=== PATIENT | female | born 1985 | race Caucasian/White ===

== ENCOUNTER 2016-07-22 08:12 | Inpatient (IN) | payer BC ==
[2016-07-22] MEDS ORDERED: Ondansetron INJ* 2 MG/ML VIAL IV ONE (08:50)
[2016-07-22] MEDS ORDERED: Oxytocin in LR* 20 UNITS/1,000 ML BAG IVPB SCH ×2 (09:00→18:00)
[2016-07-22 09:17] LABS: Hematocrit 28 % (35-47); Hemoglobin 8.9 g/dl (12.0-16.0); Mean Corpuscular HGB Conc 32 g/dl (31-36); Mean Corpuscular Hemoglobin 24 pg (27-31); Mean Corpuscular Volume 76 fL (80-97); Mean Platelet Volume 10 um3 (7.4-10.4); Red Blood Count 3.64 10^6/ul (4.0-5.4); Red Cell Distribution Width 17 % (10.5-15); White Blood Count 8.5 10^3/ul (3.5-10.8)
[2016-07-22 10:24] LABS: Albumin 3.2 g/dL (3.2-5.2); BUN/Creatinine Ratio 16.7 (8-20); Calcium 8.4 mg/dL (8.6-10.3); EGFR African American 135.2 (>60); EGFR Non-African American 105.2 (>60); Potassium 4.2 mmol/L (3.5-5.0); Total Bilirubin 0.3 mg/dL (0.2-1.0); Total Protein 6.2 g/dL (6.4-8.9); Uric Acid 4.2 mg/dL (2.3-6.6)
[2016-07-22] MEDS ORDERED: Calcium Carbonate CHEW TAB* 500 MG (TUMS) PO ONE (11:57)
[2016-07-22] MEDS ORDERED: OBEPIDURAL* 250 ML ONE (13:07)
[2016-07-22] MEDS ORDERED: Phenylephrine IV* 40 MCG/ML 10 ML SYRINGE IV PUSH PRN ×2 (13:57)
[2016-07-22] MEDS ORDERED: Famotidine TAB* 20 MG PO PRN (13:57)
[2016-07-22] MEDS ORDERED: Sodium Citrate/Citric Acid* 15 ML UDC PO PRN (13:57)
[2016-07-22] MEDS ORDERED: OBEPIDURAL* 250 ML EPIDURAL SCH (14:00)
[2016-07-22] MEDS ORDERED: Acetaminophen TAB* 325 MG PO PRN (17:48)
[2016-07-22] MEDS ORDERED: Witch Hazel PAD* JAR TOPICAL PRN (17:48)
[2016-07-22] MEDS ORDERED: Zolpidem TAB* 5 MG PO PRN (17:48)
[2016-07-22] MEDS ORDERED: Misoprostol TAB* 200 MCG PR ONE (17:48)
[2016-07-22] MEDS ORDERED: Dibucaine 1% 28.35 GM TUBE PR PRN (17:48)
[2016-07-22] MEDS ORDERED: Glycerin ADULT SUPP PR PRN (17:48)
[2016-07-22] MEDS ORDERED: oxyCODONE/Acetamin 5/325 MG* TAB PO PRN (17:48)
[2016-07-22] MEDS ORDERED: Ondansetron ODT TAB* 4 MG PO PRN (17:53)
[2016-07-22] MEDS: Docusate CAP* 100 MG PO SCH (21:28)
[2016-07-22] MEDS: Ibuprofen TAB* 600 MG PO PRN (21:28)
[2016-07-23] MEDS: Ibuprofen TAB* 600 MG PO PRN ×4 (03:35→21:41)
[2016-07-23 07:12] LABS: Hematocrit 21 % (35-47); Hemoglobin 6.8 g/dl (12.0-16.0); Mean Corpuscular HGB Conc 32 g/dl (31-36); Mean Corpuscular Hemoglobin 24 pg (27-31); Mean Corpuscular Volume 77 fL (80-97); Mean Platelet Volume 9 um3 (7.4-10.4); Red Cell Distribution Width 17 % (10.5-15)
[2016-07-23 07:28] LABS: Add Diff/Slide Review? Slide Review Added; Comments Flag Yes
[2016-07-23] MEDS: Ferrous Gluconate TAB* 324 MG TAB PO SCH ×2 (08:11→21:41)
[2016-07-23] MEDS: Docusate CAP* 100 MG PO SCH ×3 (08:11→21:05)
[2016-07-23 08:12] LABS: Hypochromasia 1+; Macrocytosis 1+; Microcytosis 2+
[2016-07-23 08:13] LABS: Polychromasia 1+
[2016-07-23 08:14] LABS: Tear Drop Cells 1+
[2016-07-23] MEDS ORDERED: NS 0.9% 1000 ML* 1,000 ML IV SCH (14:15)
--- NOTE | 2016-07-23 20:46 | PTEDU ---
Patient Name: AGNES STAFFORD AGNES STAFFORD selected video: Never Ever Shake a Baby to view on 07/23/2016 at 8:45:09 PM from [facility] [place] [id number]
[2016-07-23 21:26] LABS: Hematocrit 24 % (35-47); Hemoglobin 7.8 g/dl (12.0-16.0)
[2016-07-24] MEDS: Ibuprofen TAB* 600 MG PO PRN (08:11)
[2016-07-24] MEDS: Docusate CAP* 100 MG PO SCH (08:11)
[2016-07-24] MEDS: Ferrous Gluconate TAB* 324 MG TAB PO SCH (08:11)
[2016-07-24 08:36] VITALS: BP 140/79
== END 2016-07-24 14:05 | disposition home or self-care (01) | DRG 560 ==
LOC: MCHOBOUT 08:12 → MCHOB 08:41
PROVIDERS: ADMIT Midwife; ATTEND Midwife
PROC: 10E0XZZ Delivery of Products of Conception, External Approach (ICD-10-PCS; principal; 2016-07-22)
PROC: 3E0P7GC Introduction of Other Therapeutic Substance into Female Reproductive, Via Natural or Artificial Opening (ICD-10-PCS; 2016-07-22)
PROC: 4A1HXCZ Monitoring of Products of Conception, Cardiac Rate, External Approach (ICD-10-PCS; 2016-07-22)
PROC: 10907ZC Drainage of Amniotic Fluid, Therapeutic from Products of Conception, Via Natural or Artificial Opening (ICD-10-PCS; 2016-07-22)
PROC: 0HQ9XZZ Repair Perineum Skin, External Approach (ICD-10-PCS; 2016-07-22)
PROC: 30233N1 Transfusion of Nonautologous Red Blood Cells into Peripheral Vein, Percutaneous Approach (ICD-10-PCS; 2016-07-23)
DX: O32.2XX0 Maternal care for transverse and oblique lie, not applicable or unspecified (principal); D62 Acute posthemorrhagic anemia; O13.4 Gestational [pregnancy-induced] hypertension without significant proteinuria, complicating childbirth; O34.219 Maternal care for unspecified type scar from previous cesarean delivery; Z3A.38 38 weeks gestation of pregnancy; Z37.0 Single live birth; O70.0 First degree perineal laceration during delivery; O90.81 Anemia of the puerperium
CPT/HCPCS: 36415; 80053; 84550; 85014; 85018; 85025; 86850; 86900; 86901; 86922; A9270-GY; J2405; P9016

== ENCOUNTER 2016-09-30 19:26 | Emergency (ER) | payer BC ==
[2016-09-30 20:17] VITALS: BP 135/81
--- NOTE | 2016-09-30 20:54 | UC ---
Lower Extremity/Ankle HPI - HPI Summary HPI Summary: Pt reports taking a step down off 1 step and inverting left foot and ankle. Pt now c/o left mid foot pain that "wraps around from dorsal mid foot to mid foot of plantar side. Pt is able to bear weight but is hesitant to bear full weight secondary to pain. Pt is 10 weeks . - History of Current Complaint Chief Complaint: UCLowerExtremity Stated Complaint: FOOT AND BOTTOM INJURY Time Seen by Provider: 09/30/16 20:25 Hx Obtained From: Patient Hx Last Menstrual Period: n/a ?: No Onset/Duration: Sudden Onset, Lasting Hours Severity Initially: Mild Severity Currently: Moderate Aggravating Factor(s): Standing, Ambulation Alleviating Factor(s): Rest, Elevation, Ice Able to Bear Weight: Yes - pain with weight bearing - Risk Factors Gout Risk Factors: Negative DVT Risk Factors: Negative, Other: - 10 weeks post Septic Arthritis Risk Factor: Negative - Allergies/Home Medications Allergies/Adverse Reactions: Allergies Allergy/AdvReac Type Severity Reaction Status Date / Time Sulfamethoxazole Allergy Severe Hives Verified 09/30/16 20:09 w/Trimethoprim [From Bactrim] PMH/Surg Hx/FS Hx/Imm Hx Previously Healthy: Yes Endocrine History Of: Denies: Diabetes, Thyroid Disease Cardiovascular History Of: Reports: Hypertension - this , lab work so far negative for preeclampsia Denies: Cardiac Disorders Respiratory History Of: Denies: COPD, Asthma GI/ History Of: Reports: Kidney Stones - LEFT SIDE Denies: Ulcer - Surgical History Surgical History: Yes Surgery Procedure, Year, and Place: 2005 [facility] - Family History Known Family History: Positive: Other - positive [facility] for myalgia - Social History Alcohol Use: None Substance Use Type: None Smoking Status (MU): Never Smoked Tobacco Have You Smoked in the Last Year: No - Immunization History Most Recent Influenza Vaccination: 04/17/16 Most Recent Tetanus Shot: 07/11/16 Most Recent Pneumonia Vaccination: none Review of Systems Constitutional: Negative Skin: Negative Eyes: Negative ENT: Negative Respiratory: Negative Cardiovascular: Negative Gastrointestinal: Negative Genitourinary: Negative Motor: Decreased ROM - left foot/ankle secondary to pain Neurovascular: Negative Musculoskeletal: Decreased ROM - left ankle/foot secondary to pain, Myalgia - left ankle/foot Neurological: Negative Psychological: Negative All Other Systems Reviewed And Are Negative: Yes Physical Exam Triage Information Reviewed: Yes Appearance: Well-Appearing Vital Signs: Initial Vital Signs Temp 99.2 F 09/30/16 20:11 Pulse 97 09/30/16 20:11 Resp 19 09/30/16 20:11 BP 135/81 09/30/16 20:11 Pulse Ox 98 09/30/16 20:11 Vital Signs Reviewed: Yes Respiratory Exam: Other Respiratory: Positive: No respiratory distress Musculoskeletal Exam: Other Musculoskeletal: Positive: Strength Limited @ - left foot/ankle pain secondary to pain, ROM Limited @ - left foot/ankle secondary to pain Neurological Exam: Normal Psychological Exam: Normal Skin Exam: Normal Lower Extremity Course/Dx - Differential Dx/Diagnosis Differential Diagnosis/HQI/PQRI: Sprain - left foot sprain, Strain Provider Diagnoses: left foot sprain. left foot strain Discharge - Discharge Plan Condition: Stable Disposition: HOME Patient Education Materials: Foot Sprain (ED) Referrals: Jarocho Mai MD [Primary Care Provider] - Additional Instructions: Please follow up with your PCP or with the orthopedic provider given as a referral above if symptoms do not improve or worsen.
--- NOTE | 2016-09-30 21:16 | RAD ---
Indication: Fall. Left foot pain. 3 views of left foot demonstrates no fracture. No other bone or joint abnormality is noted. IMPRESSION: No fracture of the left foot is present.
== END 2016-09-30 21:21 | disposition home or self-care (01) ==
LOC: UCEAST 19:26
DX: S93.602A Unspecified sprain of left foot, initial encounter (principal); S96.912A Strain of unspecified muscle and tendon at ankle and foot level, left foot, initial encounter; X50.1XXA Overexertion from prolonged static or awkward postures, initial encounter; Y93.89 Activity, other specified; Y92.9 Unspecified place or not applicable; Z88.2 Allergy status to sulfonamides
CPT/HCPCS: 99212; G0463

== ENCOUNTER 2016-10-10 10:06 | Emergency (ER) | payer BC ==
[2016-10-10] MEDS ORDERED: Ondansetron ODT TAB* 4 MG PO ONE (12:28)
[2016-10-10] MEDS ORDERED: Ketorolac INJ* 30 MG/ML 1 ML VIAL IV ONE (12:28)
[2016-10-10] MEDS: NS 0.9% 1000 ML* 2,000 ML IV ONE ×2 (12:42→14:24)
[2016-10-10] MEDS ORDERED: Ondansetron INJ* 2 MG/ML VIAL IV ONE (12:45)
[2016-10-10] MEDS ORDERED: Ondansetron INJ* 2 MG/ML VIAL ONE (12:45)
[2016-10-10 13:05] LABS: Hematocrit 36 % (35-47); Mean Corpuscular HGB Conc 33 g/dl (31-36); Mean Corpuscular Hemoglobin 27 pg (27-31); Mean Corpuscular Volume 81 fL (80-97); Mean Platelet Volume 7 um3 (7.4-10.4); Red Blood Count 4.45 10^6/ul (4.0-5.4); Red Cell Distribution Width 17 % (10.5-15); White Blood Count 6.5 10^3/ul (3.5-10.8)
[2016-10-10 13:07] LABS: Urine Bilirubin Negative (Negative); Urine Glucose Negative (Negative); Urine Nitrite Negative (Negative)
[2016-10-10 13:21] LABS: Albumin 4.2 g/dL (3.2-5.2); BUN/Creatinine Ratio 16.9 (8-20); C Reactive Protein 26.12 mg/L (< 5.00); Calcium 9.1 mg/dL (8.6-10.3); EGFR African American 103.8 (>60); EGFR Non-African American 80.7 (>60); Globulin 3.2 g/dL (2-4); Potassium 3.6 mmol/L (3.5-5.0); Total Bilirubin 0.3 mg/dL (0.2-1.0); Total Protein 7.4 g/dL (6.4-8.9)
--- NOTE | 2016-10-10 13:41 | RAD ---
Indication: Abdominal and LEFT flank pain. History of urolithiasis. Comparison: October 22, 2012 CT. Technique: Supine abdomen. Report: Typical partial obscuration of the LEFT renal fossa due to bowel contents. No conspicuous renal or ureteral stones evident. IUD at the LEFT para midline pelvis. Unremarkable bowel gas pattern. Unremarkable soft tissue contours. IMPRESSION: No radiographic conspicuous urolithiasis evident.
[2016-10-10 15:00] VITALS: BP 115/69
[2016-10-10] MEDS ORDERED: Iohexol 300* (CONTRAST) 10 ML SDV IV ONE (15:39)
--- NOTE | 2016-10-10 15:58 | RAD ---
CLINICAL HISTORY: Abdominal pain, left flank pain COMPARISON: October 22, 2012 TECHNIQUE: Multiple contiguous axial CT scans were obtained of the abdomen and pelvis after the administration of intravenous contrast. Coronal and sagittal multiplanar reformations are submitted for review. Oral contrast was administered. Delayed images were obtained through the abdomen and pelvis. FINDINGS: LUNG BASES: The lung bases are clear. LIVER: The liver is normal in shape, size, contour, and attenuation. BILE DUCTS: There is no intrahepatic or extrahepatic biliary dilatation. GALLBLADDER: The gallbladder is normal, without pericholecystic inflammatory change. PANCREAS: The pancreas is normal, without mass or ductal dilatation. SPLEEN: Normal in size and appearance. UPPER GI TRACT: Evaluation of the gastrointestinal tract is limited by incomplete gastric distention. The upper GI tract is unremarkable. SMALL BOWEL AND MESENTERY: The small bowel is normal in contour, course, and caliber. There is no obstruction or dilatation. COLON: The colon is normal in contour, course, caliber. There is no pericolonic inflammatory change. There is a tubular, vermiform, hollow viscus that is blind ending, and originates from the cecum, consistent with a normal appendix. There is no periappendiceal inflammatory change. This is best seen on coronal image 47. ADRENALS: Normal bilaterally. KIDNEYS: There is a 0.5 cm nonobstructing left renal calyceal stone of the lower pole. There is no appreciable hydronephrosis. This is stable from the previous examination BLADDER: The bladder is smooth in contour. PELVIC ORGANS: The uterus and adnexa are grossly normal for technique. An IUD is noted AORTA: The aorta is normal. IVC: Unremarkable LYMPH NODES: There is no lymphadenopathy by size criteria. ABDOMINAL WALL: There is no evidence for abdominal wall hernia. BONES AND SOFT TISSUES: Unremarkable OTHER: None IMPRESSION: STABLE, SMALL NONOBSTRUCTING LEFT RENAL CALYCEAL STONE.
--- NOTE | 2016-10-10 18:24 | ED ---
Abdominal Pain/Female - HPI Summary HPI Summary: Patient presents with nausea, vomiting, subjective fever and LLQ pain that radiates to the left flank since yesterday. She went to the [facility] clinic today and was referred to the ED today. Yesterday she had an episode of severe pain for 40 minutes that subsided on its own after she laid in one position. She has a history of kidney stones and worries this is the beginning of another. She denies diarrhea, constipation, or blood in her urine. 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 Hx Last Menstrual Period: n/a ?: No Onset/Duration: Gradual Onset Timing: Intermittent Episode Lasting - 40 minutes of intense pain, then dull pain Severity Initially: Severe Severity Currently: Moderate Pain Intensity: 5 Location: Discrete At: LLQ Radiates: Yes Radiates to: Flank Character: Sharp Aggravating Factor(s): Nothing Alleviating Factor(s): Position Associated Signs and Symptoms: Positive: Fever - subjective, Nausea, Vomiting <Barrett Fajardo - Last Filed: 10/10/16 18:02> <Katherine Jay - Last Filed: 10/11/16 07:54> - History of Current Complaint Chief Complaint: EDFlankPain Stated Complaint: ABD PAIN AND VOMITTING FEVER Allergies/Adverse Reactions: Allergies Allergy/AdvReac Type Severity Reaction Status Date / Time Sulfamethoxazole Allergy Severe Hives Verified 09/30/16 20:09 w/Trimethoprim [From Bactrim] PMH/Surg Hx/FS Hx/Imm Hx Endocrine/Hematology History: Reports: Hx Anemia - WITH MENSES Denies: Hx Diabetes, Hx Thyroid Disease Cardiovascular History: Denies: Hx Hypertension Respiratory History: Denies: Hx Asthma, Hx Chronic Obstructive Pulmonary Disease (COPD) GI History: Denies: Hx Ulcer History: Reports: Hx Kidney Stones - LEFT SIDE 2016 Denies: Hx Renal Disease Sensory History: Denies: Hx Contacts or Glasses, Hx Hearing Aid Opthamlomology History: Denies: Hx Contacts or Glasses Psychiatric History: 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, 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 - Surgical History Surgery Procedure, Year, and Place: 2004 [facility] Hx Anesthesia Reactions: No Infectious Disease History: No Infectious Disease History: Denies: Hx Hepatitis, Hx Human Immunodeficiency Virus (HIV), Traveled Outside the [place] in Last 30 Days - Family History Known Family History: Positive: None - Social History Occupation: Unemployed Lives: With Family Alcohol Use: None Substance Use Type: Reports: None Smoking Status (MU): Never Smoked Tobacco Have You Smoked in the Last Year: No <Barrett Fajardo - Last Filed: 10/10/16 18:02> Review of Systems Positive: Fever - subjective, Fatigue Negative: Chest Pain Negative: Shortness Of Breath Positive: Abdominal Pain, Vomiting, Nausea Positive: flank pain Negative: Myalgia Negative: Headache, Weakness All Other Systems Reviewed And Are Negative: Yes <Barrett Fajardo - Last Filed: 10/10/16 18:02> Physical Exam Triage Information Reviewed: Yes Vital Signs On Initial Exam: Initial Vitals Temp Pulse Resp BP Pulse Ox 99.7 F 137 20 132/80 100 10/10/16 10:09 10/10/16 10:09 10/10/16 10:09 10/10/16 10:09 10/10/16 10:09 Vital Signs Reviewed: Yes Appearance: Positive: Well-Appearing, Pain Distress, Obese Skin: Positive: Warm, Skin Color Reflects Adequate Perfusion, Dry, Soft Head/Face: Positive: Normal Head/Face Inspection Eyes: Positive: EOMI, MARY, Conjunctiva Clear ENT: Positive: Hearing grossly normal, Pharynx normal Neck: Positive: Supple, Nontender Respiratory/Lung Sounds: Positive: Clear to Auscultation, Breath Sounds Present Cardiovascular: Positive: RRR - on exam 92 Abdomen Description: Positive: Soft, CVA Tenderness (L). Negative: Nontender - mild diffuse tenderness to palpation, CVA Tenderness (R), Distended, Guarding, Hernia @, McBurney's Point Tenderness Bowel Sounds: Positive: Present Musculoskeletal: Negative: Edema Left, Edema Right Neurological: Positive: Sensory/Motor Intact, Alert, Oriented to Person Place, Time, NV Bundle Intact Distally Psychiatric: Positive: Affect/Mood Appropriate AVPU Assessment: Alert - Corin Coma Scale Coma Scale Total: 15 <Barrett Fajardo - Last Filed: 10/10/16 18:02> Vital Signs On Initial Exam: Initial Vitals Temp Pulse Resp BP Pulse Ox 99.7 F 137 20 132/80 100 10/10/16 10:09 10/10/16 10:09 10/10/16 10:09 10/10/16 10:09 10/10/16 10:09 <Katherine Jay - Last Filed: 10/11/16 07:54> Diagnostics - Vital Signs Vital Signs Temp Pulse Resp BP Pulse Ox 10/10/16 17:00 99.5 F 105 16 115/69 10/10/16 14:59 103 18 115/69 97 10/10/16 12:49 99.5 F 111 16 110/64 96 10/10/16 10:39 101.0 F 118 20 129/69 97 10/10/16 10:09 99.7 F 137 20 132/80 100 - Laboratory Lab Results: Lab Results 10/10/16 10/10/16 10/10/16 Range/Units 12:45 12:45 12:45 WBC 6.5 (3.5-10.8) 10^3/ul RBC 4.45 (4.0-5.4) 10^6/ul Hgb 12.0 (12.0-16.0) g/dl Hct 36 (35-47) % MCV 81 (80-97) fL MCH 27 (27-31) pg MCHC 33 (31-36) g/dl RDW 17 H (10.5-15) % Plt Count 302 (150-450) 10^3/ul MPV 7 L (7.4-10.4) um3 Neut % (Auto) 87.3 H (38-83) % Lymph % (Auto) 4.7 L (25-47) % Millard % (Auto) 7.6 (1-9) % Eos % (Auto) 0.1 (0-6) % Baso % (Auto) 0.3 (0-2) % Absolute Neuts (auto) 5.7 (1.5-7.7) 10^3/ul Absolute Lymphs (auto) 0.3 L (1.0-4.8) 10^3/ul Absolute Monos (auto) 0.5 (0-0.8) 10^3/ul Absolute Eos (auto) 0 (0-0.6) 10^3/ul Absolute Basos (auto) 0 (0-0.2) 10^3/ul Absolute Nucleated RBC 0 10^3/ul Nucleated RBC % 0 Sodium 137 (133-145) mmol/L Potassium 3.6 (3.5-5.0) mmol/L Chloride 105 (101-111) mmol/L Carbon Dioxide 24 (22-32) mmol/L Anion Gap 8 (2-11) mmol/L BUN 14 (6-24) mg/dL Creatinine 0.83 (0.51-0.95) mg/dL Est GFR ( Amer) 103.8 (>60) Est GFR (Non-Af Amer) 80.7 (>60) BUN/Creatinine Ratio 16.9 (8-20) Glucose 103 H (70-100) mg/dL Lactic Acid (0.5-2.0) mmol/L Calcium 9.1 (8.6-10.3) mg/dL Total Bilirubin 0.30 (0.2-1.0) mg/dL AST 23 (13-39) U/L ALT 41 (7-52) U/L Alkaline Phosphatase 65 (34-104) U/L C-Reactive Protein 26.12 H (< 5.00) mg/L Total Protein 7.4 (6.4-8.9) g/dL Albumin 4.2 (3.2-5.2) g/dL Globulin 3.2 (2-4) g/dL Albumin/Globulin Ratio 1.3 (1-3) Amylase 26 L (29-103) U/L Lipase 24 (11.0-82.0) U/L Urine Color Yellow Urine Appearance Clear Urine pH 5.0 (5-9) Ur Specific [place] 1.026 (1.010-1.030) Urine Protein Negative (Negative) Urine Ketones Negative (Negative) Urine Blood Negative (Negative) Urine Nitrate Negative (Negative) Urine Bilirubin Negative (Negative) Urine Urobilinogen Negative (Negative) Ur Leukocyte Esterase Negative (Negative) Urine Glucose Negative (Negative) 10/10/16 Range/Units 12:45 WBC (3.5-10.8) 10^3/ul RBC (4.0-5.4) 10^6/ul Hgb (12.0-16.0) g/dl Hct (35-47) % MCV (80-97) fL MCH (27-31) pg MCHC (31-36) g/dl RDW (10.5-15) % Plt Count (150-450) 10^3/ul MPV (7.4-10.4) um3 Neut % (Auto) (38-83) % Lymph % (Auto) (25-47) % Millard % (Auto) (1-9) % Eos % (Auto) (0-6) % Baso % (Auto) (0-2) % Absolute Neuts (auto) (1.5-7.7) 10^3/ul Absolute Lymphs (auto) (1.0-4.8) 10^3/ul Absolute Monos (auto) (0-0.8) 10^3/ul Absolute Eos (auto) (0-0.6) 10^3/ul Absolute Basos (auto) (0-0.2) 10^3/ul Absolute Nucleated RBC 10^3/ul Nucleated RBC % Sodium (133-145) mmol/L Potassium (3.5-5.0) mmol/L Chloride (101-111) mmol/L Carbon Dioxide (22-32) mmol/L Anion Gap (2-11) mmol/L BUN (6-24) mg/dL Creatinine (0.51-0.95) mg/dL Est GFR ( Amer) (>60) Est GFR (Non-Af Amer) (>60) BUN/Creatinine Ratio (8-20) Glucose (70-100) mg/dL Lactic Acid 1.2 (0.5-2.0) mmol/L Calcium (8.6-10.3) mg/dL Total Bilirubin (0.2-1.0) mg/dL AST (13-39) U/L ALT (7-52) U/L Alkaline Phosphatase (34-104) U/L C-Reactive Protein (< 5.00) mg/L Total Protein (6.4-8.9) g/dL Albumin (3.2-5.2) g/dL Globulin (2-4) g/dL Albumin/Globulin Ratio (1-3) Amylase (29-103) U/L Lipase (11.0-82.0) U/L Urine Color Urine Appearance Urine pH (5-9) Ur Specific [place] (1.010-1.030) Urine Protein (Negative) Urine Ketones (Negative) Urine Blood (Negative) Urine Nitrate (Negative) Urine Bilirubin (Negative) Urine Urobilinogen (Negative) Ur Leukocyte Esterase (Negative) Urine Glucose (Negative) Result Diagrams: 10/10/16 12:45 10/10/16 12:45 Lab Statement: Any lab studies that have been ordered have been reviewed, and results considered in the medical decision making process. - Radiology No standard instances Xray Interpretation: No Acute Changes Radiology Interpretation Completed By: Radiologist - CT No standard instances CT Interpretation: No Acute Changes CT Interpretation Completed By: Radiologist <Barrett Fajardo - Last Filed: 10/10/16 18:02> - Vital Signs Vital Signs Temp Pulse Resp BP Pulse Ox 10/10/16 17:00 99.5 F 105 16 115/69 10/10/16 14:59 103 18 115/69 97 10/10/16 12:49 99.5 F 111 16 110/64 96 10/10/16 10:39 101.0 F 118 20 129/69 97 10/10/16 10:09 99.7 F 137 20 132/80 100 - Laboratory Lab Results: Lab Results 10/10/16 10/10/16 10/10/16 Range/Units 12:45 12:45 12:45 WBC 6.5 (3.5-10.8) 10^3/ul RBC 4.45 (4.0-5.4) 10^6/ul Hgb 12.0 (12.0-16.0) g/dl Hct 36 (35-47) % MCV 81 (80-97) fL MCH 27 (27-31) pg MCHC 33 (31-36) g/dl RDW 17 H (10.5-15) % Plt Count 302 (150-450) 10^3/ul MPV 7 L (7.4-10.4) um3 Neut % (Auto) 87.3 H (38-83) % Lymph % (Auto) 4.7 L (25-47) % Millard % (Auto) 7.6 (1-9) % Eos % (Auto) 0.1 (0-6) % Baso % (Auto) 0.3 (0-2) % Absolute Neuts (auto) 5.7 (1.5-7.7) 10^3/ul Absolute Lymphs (auto) 0.3 L (1.0-4.8) 10^3/ul Absolute Monos (auto) 0.5 (0-0.8) 10^3/ul Absolute Eos (auto) 0 (0-0.6) 10^3/ul Absolute Basos (auto) 0 (0-0.2) 10^3/ul Absolute Nucleated RBC 0 10^3/ul Nucleated RBC % 0 Sodium 137 (133-145) mmol/L Potassium 3.6 (3.5-5.0) mmol/L Chloride 105 (101-111) mmol/L Carbon Dioxide 24 (22-32) mmol/L Anion Gap 8 (2-11) mmol/L BUN 14 (6-24) mg/dL Creatinine 0.83 (0.51-0.95) mg/dL Est GFR ( Amer) 103.8 (>60) Est GFR (Non-Af Amer) 80.7 (>60) BUN/Creatinine Ratio 16.9 (8-20) Glucose 103 H (70-100) mg/dL Lactic Acid (0.5-2.0) mmol/L Calcium 9.1 (8.6-10.3) mg/dL Total Bilirubin 0.30 (0.2-1.0) mg/dL AST 23 (13-39) U/L ALT 41 (7-52) U/L Alkaline Phosphatase 65 (34-104) U/L C-Reactive Protein 26.12 H (< 5.00) mg/L Total Protein 7.4 (6.4-8.9) g/dL Albumin 4.2 (3.2-5.2) g/dL Globulin 3.2 (2-4) g/dL Albumin/Globulin Ratio 1.3 (1-3) Amylase 26 L (29-103) U/L Lipase 24 (11.0-82.0) U/L Urine Color Yellow Urine Appearance Clear Urine pH 5.0 (5-9) Ur Specific [place] 1.026 (1.010-1.030) Urine Protein Negative (Negative) Urine Ketones Negative (Negative) Urine Blood Negative (Negative) Urine Nitrate Negative (Negative) Urine Bilirubin Negative (Negative) Urine Urobilinogen Negative (Negative) Ur Leukocyte Esterase Negative (Negative) Urine Glucose Negative (Negative) 10/10/16 Range/Units 12:45 WBC (3.5-10.8) 10^3/ul RBC (4.0-5.4) 10^6/ul Hgb (12.0-16.0) g/dl Hct (35-47) % MCV (80-97) fL MCH (27-31) pg MCHC (31-36) g/dl RDW (10.5-15) % Plt Count (150-450) 10^3/ul MPV (7.4-10.4) um3 Neut % (Auto) (38-83) % Lymph % (Auto) (25-47) % Millard % (Auto) (1-9) % Eos % (Auto) (0-6) % Baso % (Auto) (0-2) % Absolute Neuts (auto) (1.5-7.7) 10^3/ul Absolute Lymphs (auto) (1.0-4.8) 10^3/ul Absolute Monos (auto) (0-0.8) 10^3/ul Absolute Eos (auto) (0-0.6) 10^3/ul Absolute Basos (auto) (0-0.2) 10^3/ul Absolute Nucleated RBC 10^3/ul Nucleated RBC % Sodium (133-145) mmol/L Potassium (3.5-5.0) mmol/L Chloride (101-111) mmol/L Carbon Dioxide (22-32) mmol/L Anion Gap (2-11) mmol/L BUN (6-24) mg/dL Creatinine (0.51-0.95) mg/dL Est GFR ( Amer) (>60) Est GFR (Non-Af Amer) (>60) BUN/Creatinine Ratio (8-20) Glucose (70-100) mg/dL Lactic Acid 1.2 (0.5-2.0) mmol/L Calcium (8.6-10.3) mg/dL Total Bilirubin (0.2-1.0) mg/dL AST (13-39) U/L ALT (7-52) U/L Alkaline Phosphatase (34-104) U/L C-Reactive Protein (< 5.00) mg/L Total Protein (6.4-8.9) g/dL Albumin (3.2-5.2) g/dL Globulin (2-4) g/dL Albumin/Globulin Ratio (1-3) Amylase (29-103) U/L Lipase (11.0-82.0) U/L Urine Color Urine Appearance Urine pH (5-9) Ur Specific [place] (1.010-1.030) Urine Protein (Negative) Urine Ketones (Negative) Urine Blood (Negative) Urine Nitrate (Negative) Urine Bilirubin (Negative) Urine Urobilinogen (Negative) Ur Leukocyte Esterase (Negative) Urine Glucose (Negative) Result Diagrams: 10/10/16 12:45 10/10/16 12:45 Lab Statement: Any lab studies that have been ordered have been reviewed, and results considered in the medical decision making process. <Katherine Jay - Last Filed: 10/11/16 07:54> Abdominal Pain Fem Course/Dx - Diagnoses Differential Diagnosis: Positive: Bowel Obstruction, Constipation, Hepatitis, Irritable Bowel Syndrome, Ovarian Cyst, Pancreatitis, Renal Colic, Urinary Tract Infection <Barrett Fajardo - Last Filed: 10/10/16 18:02> <Katherine Jay - Last Filed: 10/11/16 07:54> - Diagnoses Provider Diagnoses: Abdominal pain Discharge <Barrett Fajardo - Last Filed: 10/10/16 18:02> <Katherine Jay - Last Filed: 10/11/16 07:54> - Discharge Plan Condition: Stable Disposition: HOME Patient Education Materials: Kidney Stones (ED) Referrals: Jarocho Mai MD [Primary Care Provider] - Additional Instructions: Please call Dr. Merino's office to discuss your visit and whether you need an appointment for evaluation. Use ibuprofen 600mg three times daily with meals for the next 3-5 days to reduce pain. Drink extra fluids. Return to the emergency department if symptoms worsen. Attestations User Type: Provider - I was available for consult. This patient was seen by the advanced practice provider. The patient was not presented to, seen by, or examined by me.-Zenia <Katherine Jay - Last Filed: 10/11/16 07:54>
== END 2016-10-10 17:00 | disposition home or self-care (01) ==
LOC: ED 10:06
DX: R10.32 Left lower quadrant pain (principal); R50.9 Fever, unspecified; R11.2 Nausea with vomiting, unspecified
CPT/HCPCS: 36415; 74000; 74177; 80053; 81003; 82150; 83605; 83690; 85025; 86140; 96374; 96375; 99283; J1885; J2405; Q9967

== ENCOUNTER 2019-03-22 17:56 | Emergency (ER) | payer BC ==
--- OUTSIDE RECORDS SUMMARY | 2019-03-22 18:03 | XMS REPORT | Continuity of Care Document ---
:1985 External Reference #:[id number] Author Name Di Montanez PA-C Address [address] [place] [address] Care Team Providers Name Role Phone Mi Watson MD Care Team Information Reconnaissance Crewmember [phone] Problems Active Problems Provider Date Kidney stone Di Montanez PA-C Onset: 02/16/2019 Abdominal pain Di Montanez PA-C Onset: 02/08/2019 Abnormal composition of feces Di Montanez PA-C Onset: 02/08/2019 Other specified symptoms and signs Di Montanez PA-C Onset: 2018 involving the digestive system and abdomen Nausea Di Montanez PA-C Onset: 02/08/2019 Constipation Di Montanez PA-C Onset: 02/08/2019 Social History Type Date Description Comments Sex Unknown Tobacco Use Start: Unknown Patient has never smoked Smoking Status Reviewed: 02/08/19 Patient has never smoked Allergies, Adverse Reactions, Alerts Active Allergies Reaction Severity Comments Date Sulfamethoxazole / Trimethoprim 01/21/2019 Medications Active Medications SIG Qnty Indications Ordering Provider Date Metronidazole 1 tab by mouth 14tabs Unknown 12/20/2018 500mg Tablets twice a day Lexapro 1 by mouth Unknown 20mg Tablets every day Synthroid 1 by mouth Unknown 50mcg Tablets every day Methylphenidate HCL tid Unknown 20mg Tablets Lamictal 2 po qd Unknown 25mg Tablets Wellbutrin XL 1 by mouth Unknown 150mg Tablets every day ER 24HR Paragard Intrauterine Unknown Copper Contraceptive T380a T380a IUD Immunizations Description No Information Available Vital Signs Date Vital Result Comment 02/08/2019 10:33am Height 66 inches 5'6" Weight 155.00 lb BP Systolic 144 mmHg BP Diastolic 94 mmHg Heart Rate 98 /min BMI (Body Mass Index) 25.0 kg/m2 Results Test Date Facility Test Result H/L Range Note CBC Auto Diff 02/08/2019 [facility] White Blood Count 6.4 10^3/uL Normal 3.5- 10.8 Red Blood Count 4.35 10^6/uL Normal 3.70-4.87 Hemoglobin 11.2 g/dL Low 12.0-16.0 Hematocrit 35 % Normal 35-47 Mean Corpuscular Volume 80 fL Normal 80-97 Mean Corpuscular Hemoglobin 26 pg Low 27-31 Mean Corpuscular HGB Conc 32 g/dL Normal 31-36 Red Cell Distribution Width 17 % High 10-15 Platelet Count 394 10^3/uL Normal 150-450 Mean Platelet Volume 7.3 fL Low 7.4-10.4 Abs Neutrophils 4.7 10^3/uL Normal 1.5-7.7 Abs Lymphocytes 1.1 10^3/uL Normal 1.0-4.8 Abs Monocytes 0.5 10^3/uL Normal 0-0.8 Abs Eosinophils 0.1 10^3/uL Normal 0-0.6 Abs Basophils 0.0 10^3/uL Normal 0-0.2 Abs Nucleated RBC 0.0 10^3/uL Granulocyte % 72.8 % Lymphocyte % 17.7 % Monocyte % 8.0 % Eosinophil % 0.8 % Basophil % 0.7 % Nucleated Red Blood Cells % 0.0 Comp Metabolic Panel 02/08/2019 [facility] Sodium 134 mmol/L Low 135-145 Potassium 4.2 mmol/L Normal 3.5-5.0 Chloride 104 mmol/L Normal 101-111 Co2 Carbon Dioxide 22 mmol/L Normal 22-32 Anion Gap 8 mmol/L Normal 2-11 Glucose 119 mg/dL High 70-100 Blood Urea Nitrogen 17 mg/dL Normal 6-24 Creatinine 1.00 mg/dL High 0.51-0.95 BUN/Creatinine Ratio 17.0 Normal 8-20 Calcium 9.8 mg/dL Normal 8.6-10.3 Total Protein 7.8 g/dL Normal 6.4-8.9 Albumin 4.8 g/dL Normal 3.2-5.2 Globulin 3.0 g/dL Normal 2-4 Albumin/Globulin Ratio 1.6 Normal 1-3 Total Bilirubin 0.30 mg/dL Normal 0.2-1.0 Alkaline Phosphatase 61 U/L Normal 34-104 Alt 11 U/L Normal 7-52 Ast 14 U/L Normal 13-39 Egfr Non- 64.3 >60 Egfr 77.7 >60 1 Laboratory test finding 02/08/2019 [facility] Erythrocyte Sed Rate 19 mm/Hr Normal 0-19 2 C Reactive Protein 1.71 mg/L Normal <8.01 3 Iron & Iron Binding Capacity 02/08/2019 [facility] Iron 26 g/dL Low 50-212 Unsaturated Iron Binding < 479 g/dL Total Iron Binding Capacity 494 g/dL High 250-450 Transferrin 353 mg/dL Normal 203-362 % Iron Saturation 5 % Low 15-55 Laboratory test 02/08/2019 [facility] Ferritin 4.1 ng/mL Low 11-307 4 finding Celiac 2! 02/08/2019 [facility] Immunoglobulin A (Iga) 373 mg/dL Abnormal 61 - 356 5 Tissue Transglutamianse Iga AB <1.2 U/mL 6 1 Because ethnic data is not always readily available, this report includes an eGFR for both -Americans and non- Americans. The National Kidney Disease Education Program (NKDEP) does not endorse the use of the MDRD equation for patients that are not between the ages of 18 and 70, are , have extremes of body size, muscle mass, or nutritional status, or are non- or non-. According to the National Kidney Foundation, irrespective of diagnosis, the stage of the disease is based on the level of kidney function: Stage Description GFR(mL/min/1.73 m(2)) 1 Kidney damage with normal or decreased GFR 90 2 Kidney damage with mild decrease in GFR 60-89 3 Moderate decrease in GFR 30-59 4 Severe decrease in GFR 15-29 5 Kidney failure <15 (or dialysis) 2 [id number] 3 [id number] 4 [id number] 5 Test Performed by: [facility] [address] [place] [address] 6 REFERENCE VALUE <4.0 (Negative) Test Performed by: [facility] [address] [place] [address] Procedures Description No Information Available Medical Devices Description No Information Available Encounters Type Date Location Provider Dx Diagnosis Office Visit 02/08/2019 [facility] Tomlinson K59.00 Constipation, 10:30a [facility] leah Pineda PA-C R19.8 Oth symptoms and signs involving the dgstv sys and abdomen R19.5 Other fecal abnormalities R11.0 Nausea R10.30 Lower abdominal pain, unspecified Assessments Date Code Description Provider 02/08/2019 K59.00 Constipation, unspecified Di Montanez PA-C 02/08/2019 R19.8 Other specified symptoms and signs RONDA Mckeon involving the digestive system and abdomen 02/08/2019 R19.5 Other fecal abnormalities Di Montanez PA-C 02/08/2019 R11.0 Nausea Di Montanez PA-C 02/08/2019 R10.30 Lower abdominal pain, unspecified RONDA Mckeon Plan of Treatment Future Appointment(s):03/11/2019 10:30 am - Di Montanez [facility]-C [facility]02/08/2019 - FERNANDO Mckeon CK59.00 Constipation, unspecifiedNew Labs:O&P Ova & Parasites Screen, Ordered: 02/08/19Fecal Lactoferrin (Stool WBC), Ordered: 02/08/19Stool Occult Blood Diag, Ordered: 02/08/19R19.8 Other specified symptoms and signs involving the digestive system and efeemikW82.5 Other fecal kkgtbfxibpethK72.0 IfjzlaD08.30 Lower abdominal pain, unspecifiedNew Labs:O&P Ova & Parasites Screen, Ordered: 02/08/19Fecal Lactoferrin (Stool WBC), Ordered: 02/08Stool Occult Blood Diag, Ordered: 02/08/19 Functional Status Description No Information Available Mental Status Description No Information Available Referrals Description No Information Available
[2019-03-22 18:25] VITALS: BP 154/104
--- NOTE | 2019-03-22 18:36 | UC ---
Throat Pain/Nasal Jimmy HPI - HPI Summary HPI Summary: 34 yo female presents with cold symptoms. She tells me that 2 days ago she developed sinus pain/pressure/congestion, runny nose, sore throat, and a dry cough. She has been taking mucinex and OTC cold medicine with good relief and states her symptoms are improving and she mainly has the sore throat and hoarse voice now. She has felt feverish, but has not checked her temperature. Denies rash, SOB, abdominal pain, n/v - History of Current Complaint Chief Complaint: UCGeneralIllness Stated Complaint: SORE THROAT, COUGH Time Seen by Provider: 03/22/19 18:35 Hx Obtained From: Patient Hx Last Menstrual Period: 03/13/19 Onset/Duration: Sudden Onset Severity: Mild Pain Intensity: 4 Pain Scale Used: 0-10 Numeric - Allergies/Home Medications Allergies/Adverse Reactions: Allergies Allergy/AdvReac Type Severity Reaction Status Date / Time Sulfa (Sulfonamide Allergy Intermediate Rash Verified 03/22/19 18:26 Antibiotics) Home Medications: Home Medications Copper (Iud) [Paragard IUD] 0 unit VAGINAL ONCE 03/22/19 [History Confirmed 04/30] Escitalopram Oxalate [Lexapro] 20 mg PO QAM 03/22/19 [History Confirmed 03/22/19 ] Ibuprofen TAB* [Motrin TAB* 600 MG] 400 mg PO Q6H PRN 03/22/19 [History Confirmed 03/22/19] Levothyroxine Sodium [Synthroid] 50 mcg PO DAILY WITH MEAL 03/22/19 [History Confirmed 03/22/19] Methylphenidate HCl [Methylphenidate HCl ER] 20 mg PO TID 03/22/19 [History Confirmed 03/22/19] buPROPion TAB* [Wellbutrin TAB*] 150 mg PO BID 03/22/19 [History Confirmed 03/22] lamoTRIgine [Lamictal] 50 mg PO QAM 03/22/19 [History Confirmed 03/22/19] PMH/Surg Hx/FS Hx/Imm Hx - Additional Past Medical History Additional PMH: ADHD Bipolar Endocrine History: Hypothyroidism Psychological History: Anxiety, Depression - Surgical History Surgical History: Yes Surgery Procedure, Year, and Place: 2004 W[facility] - Family History Known Family History: Positive: None, Other - positive FMh for myalgia - Social History Lives: With Family Alcohol Use: Rare Substance Use Type: None Smoking Status (MU): Never Smoked Tobacco Have You Smoked in the Last Year: No - Immunization History Most Recent Influenza Vaccination: 04/17/16 Most Recent Tetanus Shot: 07/11/16 Most Recent Pneumonia Vaccination: none Review of Systems All Other Systems Reviewed And Are Negative: No Constitutional: Positive: Fever Skin: Positive: Negative Eyes: Positive: Negative ENT: Positive: Sore Throat, Nasal Discharge, Sinus Congestion, Sinus Pain/ Tenderness Respiratory: Positive: Cough Cardiovascular: Positive: Negative Gastrointestinal: Positive: Negative Neurological: Positive: Negative Psychological: Positive: Negative Physical Exam - Summary Physical Exam Summary: GENERAL: NAD. WDWN. No pain distress. SKIN: No rashes, sores, lesions, or open wounds. HEENT: Head: AT/NC Eyes: EOM intact. Conjunctiva clear without inflammation or discharge. Ears: Hearing grossly normal. TMs intact, no bulging, erythema, or edema. Nose: Nasal mucosa pink and moist. NTTP maxillary and frontal sinus. Throat: Posterior oropharynx without exudates, erythema, or tonsillar enlargement. Uvula midline. NECK: Supple. Nontender. No lymphadenopathy. CHEST: CTAB. No r/r/w. No accessory muscle use. Breathing comfortably and in no distress. CV: RRR. Without m/r/g. Pulses intact. Cap refill <2seconds NEURO: Alert. PSYCH: Age appropriate behavior. Triage Information Reviewed: Yes Vital Signs: Initial Vital Signs Temp 98.4 F 03/22/19 18:22 Pulse 94 03/22/19 18:22 Resp 18 03/22/19 18:22 BP 154/104 03/22/19 18:22 Pulse Ox 100 03/22/19 18:22 Laboratory Tests 03/22/19 18:45 Group A Strep Rapid Negative Vital Signs Reviewed: Yes Throat Pain/Nasal Course/Dx - Course Course Of Treatment: POC strep negative. Suspect viral illness. Advised to continue OTC medications and f/u if symptoms do not improve - Differential Dx/Diagnosis Provider Diagnosis: Laryngitis Discharge ED - Sign-Out/Discharge Documenting (check all that apply): Patient Departure All imaging exams completed and their final reports reviewed: No Studies - Discharge Plan Condition: Stable Disposition: HOME Patient Education Materials: Laryngitis (ED), Viral Syndrome (ED) Forms: *Work Release Referrals: Hayley Ortega MD [Primary Care Provider] - Additional Instructions: If you develop a fever, shortness of breath, chest pain, new or worsening symptoms - please call your PCP or go to the ED immediately. Continue taking over the counter medications as you have been. If your symptoms worsen or do not improve within 5 days - please be rechecked - Billing Disposition and Condition Condition: STABLE Disposition: Home
== END 2019-03-22 19:00 | disposition home or self-care (01) ==
LOC: UCEAST 17:56
DX: J04.0 Acute laryngitis (principal); R51 Headache; E03.9 Hypothyroidism, unspecified; F41.9 Anxiety disorder, unspecified; F32.9 Major depressive disorder, single episode, unspecified; Z88.2 Allergy status to sulfonamides
CPT/HCPCS: 87651; 99211; G0463

== ENCOUNTER 2019-04-19 20:28 | Emergency (ER) | payer BC ==
[2019-04-19 20:45] VITALS: BP 162/93
--- OUTSIDE RECORDS SUMMARY | 2019-04-19 21:22 | XMS REPORT | Continuity of Care Document ---
:1985 External Reference #:[id number] Author Name RONDA Hills Address [address] [place] [address] Care Team Providers Name Role Phone Hayley Ortega M.D. - Family Medicine Care Team Information Home Health Care Worker Unavailable Jae Marshall - Endocrinology, Diabetes & Care Team Information Home Health Care Worker [phone] Metabolism Problems Active Problems Provider Date Hypothyroidism Hayley Ortega M.D. 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 875-125mg days. Tablets Fluconazole take 1 pill at the 2tabs J01.90 Xavi Bruce, 03/28/2019 150mg onset of symptoms. M.D. Tablets Repeat in 72 hours if symptoms continue Ondansetron HCL 1 by mouth every 8 90tabs R11.0 Hayley Ortega, 06/17/2018 4mg hours as needed M.D. Tablets nausea Levothyroxine Sodium take one tablet by 90tabs Hayley Ortega, 11/02/2017 mouth once M.D. 50mcg Tablets daily/due for appointment by [facility] Lexapro 1 by mouth every 30tabs Sarah 20mg Tablets day Roslyn More Paragard Intrauterine September 2016 Unknown Copper Contraceptive T380a T380a IUD Ritalin 1 tab by mouth up 90tabs Cathryn 20mg Tablets to three times a [employer], [employer]SIDE SALES ACCOUNT EXECUTIVE day Lamictal 2 by mouth every 60tabs Sarah 25mg Tablets day [facility] Bupropion HCL 2 by mouth every 60tabs Sarah 75mg day [facility] Tablets History Medications Cipro HC instill 3 drops 10ml H62.41 [facility], 12/22/2018 - 0.2-1% into affected ear Timoteo-C 12/29/2018 Suspension twice a day x 7 days Immunizations CPT Code Status Date Vaccine Lot # [id number] Given 05/01/2018 Influenza Vac, Quadriv[place] [id number] Given 04/17/2017 Influenza Vac, Quadrivalent, Slit Virus, Im [id number] Vital Signs Date Vital Result Comment 03/28/2019 2:40pm BP Systolic 122 mmHg BP Diastolic 82 mmHg Heart Rate 84 /min Body Temperature 97.7 F O2 % BldC Oximetry 99 % Height 66 inches 5'6" Weight 157.00 lb BMI (Body Mass Index) 25.3 kg/m2 12/22/2018 10:11am BP Systolic 122 mmHg BP Diastolic 82 mmHg Heart Rate 64 /min Body Temperature 97.5 F Height 66 inches 5'6" Weight 163.25 lb BMI (Body Mass Index) 26.3 kg/m2 Results Test Date Facility Test Result H/L Range Note Laboratory test 03/22/2019 [facility] Rapid Strep Negative Negative 1 finding Molecular Laboratory test 03/08/2019 [facility] Cytology SEE RESULT 2 finding BELOW 1 Food Technician: [id number] 2 SEE RESULT BELOW Name: MAY PAIZ : [address]: Mi Watson MD Acct: [id number] Unit: [id number] AGE: 34 Location: [facility] Re03/08/19 SEX: F Status: REG REF SPEC: [id number] TYRELL: 03/08/19-[address]: Mi Watson MD REQ: [id number] RECD: 03/08/19181 STATUS: ETHAN MAHONEY DR: Hayley Ortega MD _ ORDERED: TP IMAGE ANALYS, HPV/Thin Prep COMMENTS: [id number] Negative for Intraepithelial lesion or Malignancy Fungal organisms morphologically consistent with Haily species Date Time Test Result Flag (u) Normal Range 03/08/19 1058 HPV MINA Negative Negative The high-risk HPV types detected by the assay include: 16, 18, 31, 33, 35, 39, 45, 51, 52, 56, 58, 59, 66, and 68. A. Ectocervical/Endocervical Specimen Adequacy: Satisfactory of evaluation Transformation zone component identified Patient Information: HPV: High risk HPV RNA testing regardless of pap results. Actual Specimen Date: 03/08/19 Last Menstrual Date: 02/14/19 Date of Last Specimen: 09/28/17 Signed by and Reported on: Josiah ISAIAH Dodge (ASCP) [id number] This Pap test was evaluated with the assistance of the RAMp SportsPrep Test Imaging System. Due to cytologic findings at the nut tapper microscope, comprehensive manual rescreening by a Wind Commissioning Technician may be required. The Pap Smear is a screening test designed to aid in the detection of premalignant and malignant conditions of the uterine cervix. It is not a diagnostic procedure and should not be used as the sole means of detecting cervical cancer. Both false- positive and false- negative reports do occur. Depending on your risk status, a Pap smear should be obtained and evaluated every 1-3 years. END OF REPORT DEPARTMENT OF PATHOLOGY, [address] [place] [address] Manuel Herman M.D. Director [facility] # [id number] Procedures Description No Information Available Medical Devices Description No Information Available Encounters Type Date Location Provider Dx Diagnosis Office Visit 12/22/2018 [facility] Office Sarah More, H62.41 Otitis externa in 10:15a Afnp-C oth diseases classd elswhr, right ear Office Visit 11/15/2018 [facility] Sarah More, F31.70 Bipolar disord, 2:45p Afnp-C currently in remis, most recent episode uns F90.0 Attn-defct hyperactivity disorder, predom inattentive type Assessments Date Code Description Provider 03/28/2019 J01.90 Acute sinusitis, unspecified RONDA Hills 12/22/2018 H62.41 Otitis externa in other diseases Sarah SotomayorRoslyn puckett classified elsewhere, right 11/15/2018 F31.70 Bipolar disorder, currently in remission, Roslyn Ervin most recent episod 11/15/2018 F90.0 Attention-deficit hyperactivity disorder, Sarah Roslyn More predominantly inat Plan of Treatment Future Appointment(s):07/12/2019 4:00 pm - Hayley Ortega M.D. at [facility]03/28/2019 - Shaylee Lewis, RONDAJ01.90 Acute sinusitis, unspecifiedNew Medication:Amoxicillin/Clavulanate Potassium 875-125 mg - take 1 tablet twice a day for 10 days.Fluconazole 150 mg - take 1 pill at the onset of symptoms. Repeat in 72 hours if symptoms continueComments:Start antibiotic as directed. Prescription for Diflucan called in as well. Antihistamines can help dry out the sinuses. Inhale steam/ vapor from hot shower, large pot of boiling water. Ibuprofen and Tylenol as needed for aches/ pains. Call if symptoms don't improve in the next few days.AllComments:PCMHMedication Management Patient Understands medications he's taking? Yes Are there Barriers to Adherence? No Has the patient been asked about herbal supplements and therapies, and OTC meds? Yes Care Plan1. Patient has been queried about patient's goals/preferences and functional/lifestyle goals at relevant visits. Yes If relevant, describe: N/A2. Treatment goals as explained to the patient: above3. Are there barriers to meeting treatment goals? No If Yes , please describe:4. Self-Management goals as described to the patient: Yes As always, we strongly encourage a healthy diet and making physical activity a part of your every day life. If you have questions about how or where to start, please contact the office. Functional Status Description No Information Available Mental Status Description No Information Available Referrals Description No Information Available
--- OUTSIDE RECORDS SUMMARY | 2019-04-19 21:22 | XMS REPORT | Continuity of Care Document ---
:1985 External Reference #:[id number] Author Name Di Montanez PA-C Address [address] [place] [address] Care Team Providers Name Role Phone Mi Watson MD Care Team Information Metal Machinist [phone] Hayley Ortega MD Care Team Information Metal Machinist [phone] Problems Active Problems Provider Date Kidney stone Di Montanez PA-C Onset: 02/16/2019 Iron deficiency anemia Di Montanez PA-C Onset: 04/01/2019 Abdominal pain Di Montanez PA-C Onset: 02/08/2019 Abnormal composition of feces Di Montanez PA-C Onset: 02/08/2019 Other specified symptoms and signs Di Montanez PA-C Onset: 2018 involving the digestive system and abdomen Nausea Di Montanez PA-C Onset: 02/08/2019 Constipation Di Montanez PA-C Onset: 02/08/2019 Social History Type Date Description Comments Sex Unknown Tobacco Use Start: Unknown Patient has never smoked Smoking Status Reviewed: 04/01/19 Patient has never smoked Allergies, Adverse Reactions, Alerts Active Allergies Reaction Severity Comments Date Sulfamethoxazole / Trimethoprim 01/21/2019 Medications Active Medications SIG Qnty Indications Ordering Date Provider Peg 3350/Electrolytes use as directed 4000ml Jae Shea, DO 04/01/2019 240gm Solution Rec Lexapro 1 by mouth every Unknown 20mg Tablets day Synthroid 1 by mouth every Unknown 50mcg Tablets day Methylphenidate HCL tid Unknown 20mg Tablets Lamictal 2 po qd Unknown 25mg Tablets Wellbutrin XL 1 by mouth every Unknown 150mg Tablets day ER 24HR Paragard Intrauterine Unknown Copper Contraceptive T380a T380a IUD Ondansetron HCL Every 4 Hours Unknown 4mg Tablets prn History Medications Metronidazole 1 tab by mouth 14tabs Unknown 12/20/2018 - 04/01/2019 500mg Tablets twice a day Immunizations Description No Information Available Vital Signs Date Vital Result Comment 04/01/2019 10:44am Height 66 inches 5'6" Weight 158.00 lb BMI (Body Mass Index) 25.5 kg/m2 02/08/2019 10:33am Height 66 inches 5'6" Weight 155.00 lb BP Systolic 144 mmHg BP Diastolic 94 mmHg Heart Rate 98 /min BMI (Body Mass Index) 25.0 kg/m2 Results Test Date Facility Test Result H/L Range Note CBC Auto Diff 02/08/2019 [facility] White Blood Count 6.4 10^3/uL Normal 3.5- [...] Cells % 0.0 Comp Metabolic Panel 02/08/2019 [facility] Sodium 134 mmol/L Low 135-145 Potassium 4.2 [...] 77.7 >60 1 Laboratory test finding 02/08/2019 [facility] Erythrocyte Sed Rate 19 mm/Hr Normal 0-19 2 C Reactive Protein 1.71 mg/L Normal <8.01 3 Iron & Iron Binding Capacity 02/08/2019 [facility] Iron 26 g/dL Low 50-212 Unsaturated Iron Binding < 479 g/dL Total Iron Binding Capacity 494 g/dL High 250-450 Transferrin 353 mg/dL Normal 203-362 % Iron Saturation 5 % Low 15-55 Laboratory test 02/08/2019 [facility] Ferritin 4.1 ng/mL Low 11-307 4 finding Celiac 2! 02/08/2019 [facility] Immunoglobulin A (Iga) 373 mg/dL Abnormal 61 [...] 5 Kidney failure <15 (or dialysis) 2 [id number] 3 [id number] 4 [id number] 5 Test Performed by: [facility] [place] [address] 6 REFERENCE VALUE <4.0 (Negative) Test Performed by: [facility] [email or web address] [address] Procedures Description No Information Available Medical Devices Description No Information Available Encounters Type Date Location Provider Dx Diagnosis Office Visit 02/08/2019 [facility] Tom[facility]inson K59.00 [facility], [facility] unspecified PA-C R19.8 Oth symptoms and signs involving the dgstv sys and abdomen R19.5 Other fecal abnormalities R11.0 Nausea R10.30 Lower abdominal pain, unspecified Assessments Date Code Description Provider 04/01/2019 D50.9 Iron deficiency anemia, unspecified Di Banegasom, PA-C 04/01/2019 R11.0 Nausea Di Banegasom, PA-C 04/01/2019 K59.00 Constipation, unspecified Di L. Phantrom, PA-C 04/01/2019 R10.30 Lower abdominal pain, unspecified Di L. Phantrom, PA -C 04/01/2019 R19.5 Other fecal abnormalities Di Banegasom, PA-C 02/08/2019 K59.00 Constipation, unspecified Di L. Phantrom, PA-C 02/08/2019 R19.8 Other specified symptoms and signs Di Montanez PA -C involving the digestive system and abdomen 02/08/2019 R19.5 Other fecal abnormalities Di Montanez PA-C 02/08/2019 R11.0 Nausea Di Montanez PA-C 02/08/2019 R10.30 Lower abdominal pain, unspecified RONDA Mckeon Plan of Treatment Future Appointment(s):05/10/2019 12:00 pm - Jae Valdivia DO at [facility]04/01/2019 - FERNANDO MckeonCD50.9 Iron deficiency anemia, ygjbynmvkuqQ70.0 UlycoyD30.00 Constipation, hhwymhekccqT98.30 Lower abdominal pain, flvitzibugdJ76.5 Other fecal abnormalities Functional Status Description No Information Available Mental Status Description No Information Available Referrals Description No Information Available
== END 2019-04-19 22:07 | disposition left against medical advice (07) ==
LOC: ED 20:28
DX: Z53.21 Procedure and treatment not carried out due to patient leaving prior to being seen by health care provider (principal)
CPT/HCPCS: 99282

== ENCOUNTER 2019-07-05 10:41 | Emergency (ER) | payer BC ==
[2019-07-05 11:00] VITALS: BP 147/106
--- NOTE | 2019-07-05 11:19 | UC ---
Skin Complaint HPI - HPI Summary HPI Summary: c/o ring worm that she has been treating for about 3 weeks ago with tinactin spray. States hair started itching about 4 days ago. Concerned spread to head. Did use ketaconazole on scalp yesterday. - History of Current Complaint Chief Complaint: UCSkin Time Seen by Provider: 07/05/19 10:42 Stated Complaint: RASH Hx Obtained From: Patient Hx Last Menstrual Period: 07/01/19 ?: No Onset/Duration: Sudden Onset, Lasting Days Skin Exposure Onset/Duration: Days Ago Timing: Constant Onset Severity: Mild Current Severity: None Pain Intensity: 0 Associated Signs & Symptoms: Positive: Rash - Allergy/Home Medications Allergies/Adverse Reactions: Allergies Allergy/AdvReac Type Severity Reaction Status Date / Time Sulfa (Sulfonamide Allergy Intermediate Rash Verified 07/05/19 10:52 Antibiotics) benzoyl peroxide Allergy Rash Verified 07/05/19 10:52 Home Medications: Home Medications Calcium Polycarbophil TAB* [Fibercon TAB*] 625 mg PO DAILY 07/05/19 [History Confirmed 07/05/19] Magnesium Oxide [Magnesium] 500 mg PO DAILY 07/05/19 [History Confirmed 07/05/19 ] PMH/Surg Hx/FS Hx/Imm Hx Previously Healthy: Yes - Surgical History Surgical History: Yes Surgery Procedure, Year, and Place: 2005 W[facility] - Family History Known Family History: Positive: None, Hypertension, Other - Social History Alcohol Use: None Substance Use Type: None Smoking Status (MU): Never Smoked Tobacco Have You Smoked in the Last Year: No - Immunization History Most Recent Influenza Vaccination: 04/17/16 Most Recent Tetanus Shot: 07/11/16 Most Recent Pneumonia Vaccination: none Review of Systems All Other Systems Reviewed And Are Negative: Yes Skin: Positive: Rash Is Patient Immunocompromised?: No Physical Exam Triage Information Reviewed: Yes Appearance: Well-Appearing, No Pain Distress, Well-Nourished Vital Signs: Initial Vital Signs Temp 98.2 F 07/05/19 10:55 Pulse 101 07/05/19 10:55 Resp 17 07/05/19 10:55 BP 147/106 07/05/19 10:55 Pulse Ox 98 07/05/19 10:55 Vital Signs Reviewed: Yes Eye Exam: Normal ENT Exam: Normal Dental Exam: Normal Neck exam: Normal Respiratory Exam: Normal Respiratory: Positive: Chest non-tender, Lungs clear, Normal breath sounds Cardiovascular Exam: Normal Cardiovascular: Positive: RRR, No Murmur, Pulses Normal Abdominal Exam: Normal Abdomen Description: Positive: Nontender, No Organomegaly, Soft Bowel Sounds: Positive: Present Musculoskeletal Exam: Normal Neurological Exam: Normal Psychological Exam: Normal Skin: Positive: Rashes - large area of tinea on the left hand, around hair line. Course/Dx - Course Course Of Treatment: hx obtained, exam performed, meds reviewed, treated for fungal infection, advised stress relief and follow up with dermatology - Diagnoses Provider Diagnosis: Tinea corporis Discharge ED - Sign-Out/Discharge Documenting (check all that apply): Patient Departure All imaging exams completed and their final reports reviewed: No Studies - Discharge Plan Condition: Stable Disposition: HOME Prescriptions: Fluconazole [Diflucan 150 MG (NF)] 150 mg PO WEEKLY #1 tab Ketoconazole 2 % CREAM (NF) [Nizoral 2% CREAM (NF)] 1 applic TOPICAL BID #1 tube Patient Education Materials: Tinea Corporis (ED) Referrals: Hayley Ortega MD [Primary Care Provider] - Additional Instructions: 1. Use the medication as prescribed. 2. Coconut oil inbetween medicine applications. 3. Follow up with the design center consultant if not improving in the next week or two. - Billing Disposition and Condition Condition: STABLE Disposition: Home
== END 2019-07-05 11:32 | disposition home or self-care (01) ==
LOC: UCCORT 10:41
DX: B35.4 Tinea corporis (principal); Z88.2 Allergy status to sulfonamides; Z88.8 Allergy status to other drugs, medicaments and biological substances
CPT/HCPCS: 99212; G0463